=== PATIENT | female | born 1970 | race Caucasian/White ===

== ENCOUNTER → 2018-03-27 | Outpatient (CLI) | payer OTHER ==
[~2018-03-27] MED LIST: METO25TA23 PO
--- NOTE | 2018-03-27 09:53 | RADIOLOGY IMAGING REPORT ---
FACILITY: [facility] PATIENT NAME: Marylou Pisano : 1970 MR: [id number] V: [id number] EXAM DATE: ORDERING PHYSICIAN: RAD GARG TECHNOLOGIST: Location: Patient: Marylou Pisano : 1970 Visit/Account:[id number] Date of Sevice: 03/27/2018 PELVIC HISTORY: Uterine enlargement. Suspect fibroid disease. TECHNIQUE: There has been satisfactory transvaginal and transabdominal ultrasonic evaluation of the p alberto. COMPARISON: None. FINDINGS: Uterus: Enlarged but anteverted; it measures: 15.2 cm length x 6.6 cm AP x 12.7 cm transverse. Myometrium: There are multiple fibroids in the uterus. The largest is a subserosal fibroid on the le ft side and it measures 8.3 x 7.3 x 7.0 cm in size. There are large submucosal fibroids as well. Th ey are more difficult to define. The largest submucosal fibroid appears to be in the left side and i t measures 3.9 x 3.4 x 2.9 cm in size. Endometrium: The endometrium is distorted due to the presence of multiple submucosal fibroids. Its t hickness is difficult to define precisely, it may be thickened to 12.6 mm. Cervix: There are nabothian cysts in the endocervical canal.. Ovaries: Right - the right ovary measures 3.2 x 1.6 x 2.6 cm. It is not optimally visualized but does ap pear to contain small follicular cysts. Left - the left ovary measures 3.3 x 1.4 x 1.5 cm in size. It contains small follicular cysts. Blood flow is documented in each ovary by duplex Doppler ultrasound. Adnexa: Grossly unremarkable. Free pelvic fluid: None. Bladder: During transabdominal imaging the bladder is unremarkable. IMPRESSION: 1. Markedly enlarged myomatous uterus measuring 15.2 cm in its greatest sagittal dimension and 12 cm in its greatest transverse dimension. The largest fibroid is on the left side and it measures 8.3 x 7.3 x 7.0 cm in size. There are large fibroids elsewhere and there is a prominent submucosal fibroi d in the right side that distorts the endometrial canal. 2. Normal ovaries bilaterally. 3. The endometrial canal difficult to completely define, but it appears to be thickened at 12.6 mm. Report Dictated By: Gallo Pete MD at 03/27/2018 9:41 AM Report E-Signed By: Gallo Pete MD at 03/27/2018 9:50 AM WSN:[id number]
== END ==
LOC: US 01:38
PROVIDERS: ATTEND Family Medicine
DX: D25.9 Leiomyoma of uterus, unspecified (principal); N88.8 Other specified noninflammatory disorders of cervix uteri
CPT/HCPCS: 76856